=== PATIENT | female | born 1960 | race Caucasian/White ===

== ENCOUNTER 2020-12-15 14:26 | Outpatient (CLI) | payer OTHER, SELFPAY ==
--- NOTE | ~2020-12-15 | CT_ITS ---
EXAMINATION: CT lung screening DATE: 12/15/2020 15:25 INDICATION: Z87.891 - Personal history of nicotine dependence TECHNIQUE: Computed tomography (CT) of the chest was performed without intravenous contrast. Addition al 3D reconstructions utilizing coronal maximum intensity projection (MIP) were performed. Automated exposure control and iterative reconstruction technique were employed. The dose-length product was 75 .28 mGy-cm. COMPARISON: None FINDINGS: Mild emphysema. Diffuse mild central bronchiectatic changes. Mild pleural parenchymal scarring at the bilateral apices. There are few scattered bilateral <4 mm pulmonary nodules. No pulmonary edema, ple ural effusion or pneumothorax. Heart size is normal. Scattered atherosclerotic coronary artery calcif ications. No pericardial effusion. Thoracic aorta is normal in caliber. No pathologically enlarged th oracic lymphadenopathy. No interval change since CT abdomen dated 11/25/2014 in peripherally calcified 1.9 cm and 1.4 cm splenic artery aneurysms. Mild thoracic spondylosis. IMPRESSION: 1. Lung-RADS category 2: Benign appearance or behavior. Continue annual screening with noncontrast lo w-dose chest CT in 12 months. Reviewed, dictated and finalized at location A. IMPRESSION: 1. Lung-RADS category 2: Benign appearance or behavior. Continue annual screeni ng with noncontrast low-dose chest CT in 12 months.
--- NOTE | ~2020-12-15 | MM_ITS ---
EXAMINATION: MM screening [facility] BI w jennifer HISTORY: Screening TECHNIQUE: Craniocaudal and mediolateral oblique 3-D tomosynthesis images were obtained and synthetic 2-D images were generated. CAD analysis was submitted and interpreted. COMPARISON: Comparison to multiple prior studies sequentially, with oldest reviewed study dated 11/08. BREAST PARENCHYMAL COMPOSITION: Breast composed of scattered areas of fibroglandular density. FINDINGS: There is no evidence of suspicious mass, calcification, or architectural distortion to sugg est malignancy in either breast. There has been no suspicious interval change. IMPRESSION: 1. No mammographic evidence of malignancy. 2. Recommend routine screening mammography in one year. BI-RADS Category 1: Negative Reviewed, dictated and finalized at location A.
== END 2020-12-15 14:27 | disposition home or self-care (01) ==
PROVIDERS: PCP Family Medicine; Visit Provider Family Medicine
DX: Z12.2 Encounter for screening for malignant neoplasm of respiratory organs (principal); Z87.891 Personal history of nicotine dependence; Z12.31 Encounter for screening mammogram for malignant neoplasm of breast
CPT/HCPCS: 71271; 77063; 77067

== ENCOUNTER → 2022-03-05 14:33 | Outpatient (CLI) | payer OTHER, SELFPAY ==
--- NOTE | ~2022-03-05 | CT_ITS ---
EXAMINATION: CT lung screening DATE: 03/05/2022 14:51 INDICATION: Lung cancer screening. TECHNIQUE: Computed tomography (CT) of the chest was performed without intravenous contrast. The dose -length product was 66.97 mGy-cm. Automated exposure control and iterative reconstruction technique w ere employed. COMPARISON: CT dated 12/16/2019 FINDINGS: Heart size is normal. No significant pleural or pericardial effusion. No thoracic lymphaden opathy. There is emphysema. No endobronchial lesions. Stable splenic artery aneurysms compared with p rior study. There is apical pleural thickening/scarring. There are a few small scattered pulmonary no dules measuring 3 mm or less, unchanged. Mild thoracic spondylosis. IMPRESSION: 1. Lung-RADS category 2: Benign appearance or behavior. Continue annual screening with noncontrast lo w-dose chest CT in 12 months. Reviewed, dictated and finalized at location B. COACH IMPRESSION: 1. Lung-RADS category 2: Benign appearance or behavior. Continue annual screeni ng with noncontrast low-dose chest CT in 12 months.
--- NOTE | ~2022-03-05 | MM_ITS ---
EXAMINATION: MM screening [facility] BI w jennifer HISTORY: Screening mammogram TECHNIQUE: Craniocaudal and mediolateral oblique 3-D tomosynthesis images were obtained and synthetic 2-D images were generated. CAD analysis was submitted and interpreted. COMPARISON: 12/15/2020 bilateral screening mammogram 02/09/2019 diagnostic left mammogram and limited left breast ultrasound 01/27/2019 bilateral screening mammogram BREAST PARENCHYMAL COMPOSITION: The breasts are heterogeneously dense, which may obscure small masses . FINDINGS: New approximately 12 mm partially circumscribed rounded opacity in the posterior upper oute r left breast. Diagnostic left mammogram and left breast ultrasound examination are recommended. There is chronic fibroglandular asymmetry. Occasional benign calcifications. There is no other eviden ce of suspicious mass, calcification, or architectural distortion to suggest malignancy in either taya ast. There has been no other suspicious interval change. IMPRESSION: 1. New 12 mm partially circumscribed opacity in posterior upper outer left breast 2. Diagnostic left mammogram and left breast ultrasound examination are recommended BI-RADS Category 0: Incomplete: Needs additional imaging evaluation. Reviewed, dictated and finalized at location A. 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 New 12 mm partially circumscribed opacity in posterior upper outer left [address] 2. Diagnostic left mammogram and left breast ultrasound examination are recomme nded BI-RADS Category 0: Incomplete: Needs additional imaging evaluation.
== END ==
PROVIDERS: PCP Family Medicine; Visit Provider Physician Assistant
DX: Z12.2 Encounter for screening for malignant neoplasm of respiratory organs (principal); F17.210 Nicotine dependence, cigarettes, uncomplicated
CPT/HCPCS: 71271; 77063; 77067

== ENCOUNTER 2022-03-30 00:04 | Day surgery (SDC) | payer OTHER, SELFPAY ==
[2022-03-22 11:07] VITALS: BMI 21.7
--- NOTE | 2022-03-29 20:21 | PM.HPGS ---
History of Present Illness History of Present Illness Consent: Risks, benefits, and alternatives have been discussed and questions answered. Patient agrees to proceed with procedure. Chief complaint: neoplasm screening Narrative: Sandra Baugh is a 61 year old female Who was referred for colon cancer screening. Her last colonoscopy was 10 years ago. Review of Systems Review of Systems: All systems reviewed & are unremarkable except as noted in HPI and below PMFSH Past Medical History Medical History ACL tear Encounter for screening mammogram for breast cancer History of benign breast biopsy Ovarian mass Surgical History Surgical History History of appendectomy History of carpal tunnel release Family History Family History Mother Hypertension Family history of elevated blood lipids Social History Social History Smoking packs per day: 0.5 Smoking cigarettes per day: 10.0 Years smoked: 30 Smoking pack-years: 15.00 Smoking status: Current every day smoker Tobacco type: cigarettes Alcohol intake: current Drinks per week: 6 Substance use type: does not use Living arrangements: with family Spiritual care concerns: No Meds Home Medications and Allergies Home Medications Medication Instructions Recorded Confirmed Type loratadine 5 mg-pseudoephedrine ER See Rx Instructions .Route 11/23/21 03/22/22 Rx 120 mg tablet,extended .COMPLEX #60 tabs release,12hr (Loratadine-D) meclizine 12.5 mg tablet 12.5 mg PO BID PRN dizziness #30 11/27/21 03/22/22 Rx tabs triamterene 37.5 1 tablet PO QAM #90 tabs 02/21/22 03/22/22 Rx mg-hydrochlorothiazide 25 mg tablet atorvastatin 10 mg tablet 10 mg PO DAILY 03/22/22 03/22/22 History Allergies Allergy/AdvReac Type Severity Reaction Status Date / Time erythromycin base Allergy Unknown Unknown Verified 03/30/22 08:43 Sulfa (Sulfonamide Allergy Unknown Nausea Verified 03/30/22 08:43 Antibiotics) sulfamethizole Allergy Unknown Unknown Verified 03/30/22 08:43 codeine AdvReac Unknown Nausea Verified 03/30/22 08:43 Exam Const: General: alert Orientation/consciousness: patient oriented x3 Resp: Auscultation: clear to auscultation bilaterally Cardio: Rhythm: regular rhythm GI: GI Palp: Yes Soft to palpation and No Tenderness to palpation present (GI) Neuro: General: patient oriented x3 Assessment and Plan Assessment and plan (1) Colon cancer screening: Code(s): Z12.11 - Encounter for screening for malignant neoplasm of colon Status: Acute Assessment and Plan: Colonoscopy with possible biopsy or polypectomy or cautery or injection of substances.
[2022-03-30 08:44] VITALS: BP 111/80; PULSE 114; RESP 19; TEMP 36.4; O2SAT 98
[2022-03-30] MEDS: LACTATED RINGERS 1,000 ML 150 ML IV CONT (08:52)
--- NOTE | 2022-03-30 09:18 | WPDANESEPPF ---
Anes - Initial Pre Proc Eval Procedure: Operation Date: 03/30/22 09:30 Proposed Procedures p Screening Colonoscopy - Arnold Javed MD Date/Time: 03/30/22 09:18 Surgeon: Arnold Javed MD Pre Op Diagnosis: neoplasm screening Patient Data Age: 61 Gender: F Height: 1.8 m Weight: 69.6 kg Last Vital Signs Temp 97.6 F 03/30/22 08:44 Pulse 114 H 03/30/22 08:44 Resp 19 03/30/22 08:44 BP 111/80 03/30/22 08:44 Pulse Ox 98 03/30/22 08:44 O2 Del Method Room Air 03/30/22 08:44 Allergies Allergy/AdvReac Type Severity Reaction Status Date / Time erythromycin base Allergy Unknown Unknown Verified 03/30/22 08:43 Sulfa (Sulfonamide Allergy Unknown Nausea Verified 03/30/22 08:43 Antibiotics) sulfamethizole Allergy Unknown Unknown Verified 03/30/22 08:43 codeine AdvReac Unknown Nausea Verified 03/30/22 08:43 Home Medications Medication Instructions Recorded Confirmed Type loratadine 5 mg-pseudoephedrine ER See Rx Instructions .Route 11/23/21 03/22/22 Rx 120 mg tablet,extended .COMPLEX #60 tabs release,12hr (Loratadine-D) meclizine 12.5 mg tablet 12.5 mg PO BID PRN dizziness #30 11/27/21 03/22/22 Rx tabs triamterene 37.5 1 tablet PO QAM #90 tabs 02/21/22 03/22/22 Rx mg-hydrochlorothiazide 25 mg tablet atorvastatin 10 mg tablet 10 mg PO DAILY 03/22/22 03/22/22 History Patient hx anesthesia problems: none Family hx anesthesia problems: none Results Review: All pre-operative results and documents have been reviewed as part of the pre-operative evaluation. [facility] Past Medical History Medical History ACL tear Encounter for screening mammogram for breast cancer History of benign breast biopsy Ovarian mass Surgical History Surgical History History of appendectomy History of carpal tunnel release Family History Family History Mother Hypertension Family history of elevated blood lipids Social History Social History Smoking packs per day: 0.5 Smoking cigarettes per day: 10.0 Years smoked: 30 Smoking pack-years: 15.00 Smoking status: Current every day smoker Tobacco type: cigarettes Alcohol intake: current Drinks per week: 6 Substance use type: does not use Living arrangements: with family Spiritual care concerns: No Anes - Eval Final PreProcedure Day of Procedure 03/30/22 09:18 Patient weight: normal Heart: regular rate and rhythm Lungs: clear to auscultation Airway: Mallampati scale class II Neurological: alert and oriented Last oral intake: >/= 8 hours ASA classification: II Emergent: no Anesthetic plan: proceed Anesthesia type and monitoring: general GIVS and standard monitoring Results Review: All pre-operative results and documents have been reviewed as part of the pre-operative evaluation. Informed Consent: The patient's anesthetic plan and its attendant risks and benefits were discussed with the patient/family/POA. Questions were solicited and answers provided to the satisfaction of the patient/family/POA.
[2022-03-30 09:47] VITALS: BP 122/77; PULSE 90; RESP 20; O2SAT 100
[2022-03-30 09:57] VITALS: BP 122/80; PULSE 86; RESP 20; O2SAT 99
[2022-03-30 10:07] VITALS: BP 114/69; PULSE 88; RESP 20; O2SAT 100
== END 2022-03-30 10:17 | disposition home or self-care (01) ==
PROVIDERS: PCP Family Medicine; Visit Provider Internal Medicine Gastroenterology
PROC: 0DJD8ZZ Inspection of Lower Intestinal Tract, Via Natural or Artificial Opening Endoscopic (ICD-10-PCS; CPT 45378; principal; 2022-03-30 09:30)
DX: Z12.11 Encounter for screening for malignant neoplasm of colon (principal); K57.30 Diverticulosis of large intestine without perforation or abscess without bleeding; F17.210 Nicotine dependence, cigarettes, uncomplicated
CPT/HCPCS: 45378; J2704; J7120

== ENCOUNTER 2022-05-11 07:42 | Outpatient (CLI) | payer OTHER, SELFPAY ==
--- NOTE | ~2022-05-11 | MMUS_ITS ---
EXAMINATION: MM diagnostic [facility] LT w jennifer, US breast LT limited HISTORY: Follow-up left breast asymmetries TECHNIQUE: Additional 3-D tomosynthesis images of the left breast were performed and synthetic 2-D im ages were generated. CAD analysis was submitted and interpreted. High resolution Limited left breast ultrasound was performed. COMPARISON: Comparison to multiple prior studies sequentially, with oldest reviewed study dated 12/02. BREAST PARENCHYMAL COMPOSITION: The breasts are heterogeneously dense, which may obscure small masses FINDINGS: MAMMOGRAPHIC FINDINGS: There is a stable mass in the upper outer quadrant of the left breast which is partially obscured by fibroglandular tissue. There are no suspicious calcifications or architectural distortion. ULTRASOUND: Limited left breast ultrasound: At 1:00, 4 cm from the nipple, there is a stable mixed solid and cyst ic oval hypoechoic mass with parallel orientation, posterior acoustic enhancement and no internal vas cularity. This mass measures 1.4 x 1.4 x 0.8 cm and is unchanged dating back to 2007 allowing for dif ferences of technique. At 2:00, 4 cm from the nipple there is a hypoechoic mass measuring 5 x 4 x 3 m m with slightly irregular margins and marginal vascularity. No significant posterior features. IMPRESSION: 1. Slightly irregular shaped 5 mm hypoechoic mass of the left breast at 2:00, 4 cm from the nipple. 2. Ultrasound-guided left breast biopsy recommended. BI-RADS category 4, suspicious findings. Reviewed, dictated and finalized at location A. 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 Slightly irregular shaped 5 mm hypoechoic mass of the left breast at 2:00, 4 cm from the nipple. 2. Ultrasound-guided left breast biopsy recommended. BI-RADS category 4, suspicious findings.
== END 2022-05-11 07:43 ==
LOC: MICIMG 07:43
PROVIDERS: PCP Family Medicine; Visit Provider Physician Assistant
DX: R92.8 Other abnormal and inconclusive findings on diagnostic imaging of breast (principal)
CPT/HCPCS: 76642; 77061; 77065; G0279

== ENCOUNTER 2022-05-18 09:03 | Outpatient (CLI) | payer OTHER, SELFPAY ==
--- NOTE | ~2022-05-18 | US_ITS ---
US breast LT limited INDICATION: Focal abnormality seen on previous ultrasound in the left breast. Biopsy requested. TECHNIQUE: Dedicated Limited left breast ultrasound COMPARISON: 05/11/2022 FINDINGS: The left breast is composed of normal heterogeneous echotexture without focal solid or cyst ic mass. The area of previously identified abnormality at 2:00, 4 cm from the nipple was scanned by prakash persaud technologist and Dr. Barahona. The previously identified 4 mm hypoechoic lesion could not be replicate d on the current examination with multiple attempts. This likely represents focal fibroglandular cont ent. No abnormalities at this location were identified for biopsy purposes. Findings were discussed w ith the patient at the time of the examination. It was explained to the patient that no abnormality w as identified for biopsy. The patient expressed her concern that the discrepancy between examinations and we discussed the possibility of the teaching additional opinion an outside institution. She was encouraged to do so following discussion with her primary care physician. IMPRESSION: 1: Left breast abnormality at 2:00, 4 cm from the nipple shows no reproducible abnormality which was discussed on prior examination. Biopsy canceled. BI-RADS CATEGORY 3-PROBABLY BENIGN FINDING RECOMMENDATION: Six-month follow-up diagnostic left mammogram and ultrasound recommended. Reviewed, dictated and finalized at location A. E HOST IMPRESSION: 1: Left breast abnormality at 2:00, 4 cm from the nipple shows no reproducible abnormality which was discussed on prior examination. Biopsy canceled. BI-RADS CATEGORY 3-PROBABLY BENIGN FINDING RECOMMENDATION: Six-month follow-up diagnostic left mammogram and ultrasound re commended.
== END 2022-05-18 09:04 | disposition home or self-care (01) ==
PROVIDERS: PCP Family Medicine; Visit Provider Family Medicine
DX: N63.20 Unspecified lump in the left breast, unspecified quadrant (principal); R92.8 Other abnormal and inconclusive findings on diagnostic imaging of breast
CPT/HCPCS: 76642

== ENCOUNTER 2022-06-04 10:00 | Outpatient (CLI) | payer OTHER, SELFPAY ==
--- NOTE | ~2022-06-04 | XR_ITS ---
Supine and upright views of the abdomen Clinical history: Diarrhea Findings: Bowel gas pattern is nonspecific. No evidence for obstruction or free air. No abnormal mass lesion or calcification is seen. Osseous structures are intact. Impression: No significant abnormality is seen. Reviewed, dictated and finalized at [facility]. 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
== END 2022-06-04 10:01 ==
PROVIDERS: PCP Family Medicine; Visit Provider Family Medicine
DX: R19.7 Diarrhea, unspecified (principal); R10.9 Unspecified abdominal pain
CPT/HCPCS: 74018

== ENCOUNTER 2022-08-27 18:43 | Emergency (ER) | payer OTHER, SELFPAY ==
[2022-08-27 18:55] VITALS: BP 130/88; PULSE 109; RESP 16; TEMP 36.6; O2SAT 100
--- NOTE | 2022-08-27 19:12 | ED.WOUNDLAC ---
HPI - Wound/Laceration General Chief Complaint: Skin/Abscess/Foreign Body Stated Complaint: Injured left leg Time Seen by Provider: 08/27/22 19:02 Source: patient, RN notes reviewed and old records reviewed Mode of arrival: ambulatory Limitations: no limitations History of Present Illness HPI narrative: 61 year old female who presents to [facility] care with complaints of hitting her left lower leg on the oven door this evening at 1700.. 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 When she hit area area busted open with bruising to tissue at lower aspect of wound with red tissue at upper aspect of wound. Patient reports that she had a moderate amount of bleeding from tissue when it occurred. Patient has large band-aide over wound area on arrival with bleeding controlled at this time.Patient reports that she had previous radiation treatment to area and also had seen wound care clinic at [facility].Patient has appointment with her kiss machine operator tomorrow who initially performed the removal of skin cancer. Onset (ago): hour(s) (1700 this evening) Location: other (left lower anterior leg) Place: home Patient tetanus UTD: Yes Treatments prior to arrival: bandage Related Data Allergies Allergy/AdvReac Type Severity Reaction Status Date / Time erythromycin base Allergy Unknown Unknown Verified 07/30/22 15:07 Sulfa (Sulfonamide Allergy Unknown Nausea Verified 07/30/22 15:07 Antibiotics) sulfamethizole Allergy Unknown Unknown Verified 07/30/22 15:07 codeine AdvReac Unknown Nausea Verified 07/30/22 15:07 Review of Systems Review of Systems: CONSTITUTIONAL: Denies fever, chills, or sweats. CARDIOVASCULAR: Denies chest pain, palpitations, or edema. RESPIRATORY: Denies cough or dyspnea. GASTROINTESTINAL: Denies abdominal pain, nausea, vomiting SKIN: Reports redness and swelling of open wound to left lower leg where she hit it on oven door this evening had previous removal of skin cancer from area. MUSCULOSKELETAL: Denies myalgia. NEUROLOGIC: Denies headache, numbness All systems reviewed & are unremarkable except as noted in HPI and below [facility] Past Medical History Medical History (Updated 08/28/22 @ 09:24 by Debra Machado NP) ACL tear Encounter for screening mammogram for breast cancer Fecal incontinence Fecal urgency History of benign breast biopsy Ovarian mass Sigmoid diverticulum Surgical History Surgical History (Updated 08/28/22 @ 09:17 by Debra Machado NP) History of appendectomy History of carpal tunnel release Status post surgical removal of malignant neoplasm of skin Family History Family History Mother Hypertension Family history of elevated blood lipids Social History Social History Smoking packs per day: 0.5 Smoking cigarettes per day: 10.0 Years smoked: 30 Smoking pack-years: 15.00 Smoking status: Current every day smoker Tobacco type: cigarettes Alcohol intake: current Drinks per week: 6 Substance use type: does not use Lack of Transportation: No Lack of Food: Never True Current Housing: I Have Housing Concerned About Future Housing: No Difficulty Paying Gas/Electric Bills: No Difficulty Paying for Meds: No Currently Unemployed: No Education: High School Diploma/GED Difficulty w/ Childcare or Family Care: No Living arrangements: with family Spiritual care concerns: No Comments At time of signature, agree with nursing past medical, surgical, social and family history. There is no relevant family history pertinent to the presenting complaint Exam Narrative: GENERAL: Well-appearing, well-nourished, and in no acute distress. HEAD: Normocephalic, atraumatic. EYES: PERRLA and EOMI. ENT: Nares clear, no rhinorrhea or epistaxis. Mucous membranes moist.TM's nor
== END 2022-08-27 19:31 | disposition home or self-care (01) ==
PROVIDERS: Emergency Provider Registered Nurse; PCP Family Medicine
DX: S81.802A Unspecified open wound, left lower leg, initial encounter (principal); W22.8XXA Striking against or struck by other objects, initial encounter; Z85.828 Personal history of other malignant neoplasm of skin; F17.210 Nicotine dependence, cigarettes, uncomplicated
CPT/HCPCS: 99213; G0463

== ENCOUNTER 2023-01-14 07:59 | Outpatient (CLI) | payer OTHER, SELFPAY ==
--- NOTE | ~2023-01-14 | MMUS_ITS ---
EXAMINATION: MM diagnostic fred LT w jennifer, US breast LT limited HISTORY: Follow-up for probably benign left breast mass TECHNIQUE: Craniocaudal, mediolateral, and mediolateral oblique 3-D tomosynthesis images of the left breast were performed and synthetic 2-D images were generated. CAD analysis was submitted and interpr eted. High resolution limited left breast ultrasound was performed. COMPARISON: 05/18/2022, 05/11/2022, 03/05/2022, 12/15/2020 BREAST PARENCHYMAL COMPOSITION: The breasts are heterogeneously dense, which may obscure small masses . FINDINGS: MAMMOGRAPHIC FINDINGS: A stable mass in the upper outer quadrant of the breast is considered benign given the lack of interv al change. No mammographic correlate is identified for the sonographic finding in question. ULTRASOUND: There is a questionable 4 mm hypoechoic mass at the 2:00 location, 4 cm from the nipple. On some imag es, this appears to blend with background parenchymal. Overall size of the area questioned is stable since the comparison ultrasound. There is a stable 1.4 x 0.7 cm oval, circumscribed, parallel, comple x cystic and solid mass at the 1:00 location, 4 cm from the nipple. IMPRESSION: 1. Probably benign sonographically detected finding of the left breast. 2. Recommend 6 month follow-up left diagnostic mammogram and ultrasound. BI-RADS category 3, probably benign findings. Reviewed, dictated and finalized at location A. IMPRESSION: 1. Probably benign sonographically detected finding of the left breast. 2. Recommend 6 month follow-up left diagnostic mammogram and ultrasound. BI-RADS category 3, probably benign findings.
== END 2023-01-14 08:00 ==
LOC: MICIMG 08:00
PROVIDERS: PCP Family Medicine; Visit Provider Family Medicine
DX: Z12.31 Encounter for screening mammogram for malignant neoplasm of breast (principal); R92.8 Other abnormal and inconclusive findings on diagnostic imaging of breast
CPT/HCPCS: 76642; 77061; 77065; G0279

== ENCOUNTER 2023-10-16 08:03 | Outpatient (CLI) | payer OTHER, SELFPAY ==
--- NOTE | ~2023-10-16 | MMUS_ITS ---
EXAMINATION: MM diagnostic fred BI w jennifer, US breast LT limited HISTORY: Six-month follow-up of probably benign left breast lesion TECHNIQUE: 3-D tomosynthesis images of the bilateral breasts were performed and synthetic 2-D images were generated. CAD analysis was submitted and interpreted. High resolution limited left breast ultra sound was performed. COMPARISON: 01/14/2023, 05/11/2022, 03/05/2022 BREAST PARENCHYMAL COMPOSITION:Dense: The breasts are heterogeneously dense, which may obscure small masses. FINDINGS: MAMMOGRAPHIC FINDINGS: Parenchymal pattern of both breasts is unchanged. Stable area of asymmetric density at the upper, out er left breast. No suspicious microcalcifications seen. No suspicious mass lesion or distortion seen. ULTRASOUND: At the 1:00 position left breast, 4 cm from nipple, there is a stable 1.4 x 1.3 x 0.7 cm circumscribe d mass which is wider than tall, probably solid and hypoechoic, with some small cystic components. No posterior shadowing. No other sonographic lesions seen in the region scanned. IMPRESSION: No evidence for malignancy. Stable mammographic examination. Stable benign-appearing 1.4 cm mass at the 1:00 position left breast, as detailed above. BI-RADS Category 2: Benign finding(s). Reviewed, dictated and finalized at location M. IMPRESSION: No evidence for malignancy. Stable mammographic examination. Stable benign-sheri earing 1.4 cm mass at the 1:00 position left breast, as detailed above. BI-RADS Category 2: Benign finding(s).
== END 2023-10-16 08:04 ==
PROVIDERS: PCP Nurse Practitioner; Visit Provider Family Medicine
DX: R92.8 Other abnormal and inconclusive findings on diagnostic imaging of breast (principal)
CPT/HCPCS: 76642; 77062; 77066; G0279

== ENCOUNTER 2023-12-02 13:25 | Outpatient (CLI) | payer OTHER, SELFPAY ==
--- NOTE | ~2023-12-02 | MR_ITS ---
MR breast BI wo/w con 12/02/2023 16:27 CDT INDICATION: Follow-up left breast mass TECHNIQUE: MRI of the breasts perform using standard protocol pre-and post IV contrast with the follo wing sequences: Axial T2 STIR, axial T1, axial vibrant T1 with fat suppression precontrast and multip hasic postcontrast. 15 cc MultiHance administered intravenously. COMPARISON: Comparison to multiple prior studies sequentially, with oldest reviewed study dated 05/2020. FINDINGS: There are no abnormalities on the precontrast sequences. There is minimal background parenc hymal enhancement. No enhancing lesions following contrast administration. No areas of enhancement meeting threshold criteria on CAD analysis. No evidence of signal abnormalities in the axillary or i nternal mammary node distributions. LEFT BREAST: Precontrast sequences demonstrate a T1 hypointense mass in the upper inner quadrant of t he left breast, middle third at approximately 12:00. This mass has a rounded configuration with inter nal dark septations, heterogeneous rapid persistent enhancement postcontrast administration measuring 8 x 6 x 5 mm. There is minimal background parenchymal enhancement. IMPRESSION: 1: Right breast: Negative. No evidence of malignancy. BI-RADS category 1. Recommend annual mammo graphy follow-up. 2: Left breast: Complex heterogeneously enhancing 8 mm left breast mass upper inner quadrant at appr oximately 12:00, middle third. This corresponds to the mass identified on prior ultrasound examinatio ns. Although there is been no significant change to this mass compared with prior ultrasounds dating back to 05/11/2022, low-grade malignancy is not excluded. Ultrasound-guided left breast biopsy recomm ended. BI-RADS CATEGORY 4-SUSPICIOUS ABNORMALITY Reviewed, dictated and finalized at location B. IMPRESSION: 1: Right breast: Negative. No evidence of malignancy. BI-RADS category 1. Recommend annual mammography follow-up. 2: Left breast: Complex heterogeneously enhancing 8 mm left breast mass upper inner quadrant at approximately 12:00, middle third. This corresponds to the ma ss identified on prior ultrasound examinations. Although there is been no sign ificant change to this mass compared with prior ultrasounds dating back to 05/11, low-grade malignancy is not excluded. Ultrasound-guided left breast biop sy recommended. BI-RADS CATEGORY 4-SUSPICIOUS ABNORMALITY
== END 2023-12-02 13:26 | disposition home or self-care (01) ==
PROVIDERS: PCP Family Medicine; Visit Provider Surgery
DX: N63.21 Unspecified lump in the left breast, upper outer quadrant (principal); R92.8 Other abnormal and inconclusive findings on diagnostic imaging of breast; R92.333 Mammographic heterogeneous density, bilateral breasts
CPT/HCPCS: 77049; A9577; C8908

== ENCOUNTER 2024-01-22 08:49 | Outpatient (CLI) | payer OTHER, SELFPAY ==
--- NOTE | ~2024-01-22 | MMUS_ITS ---
MM post biopsy invasive LT, US breast biopsy LT w image EXAMINATION: US GUIDED NEEDLE BIOPSY WITH VACUUM ASSISTANCE DATE: 01/22/2024 11:29 CDT INDICATION: Left breast mass seen on recent examination. Ultrasound-guided core biopsy is requested to evaluate for malignancy. BREAST PARENCHYMAL COMPOSITION: Dense: The breasts are heterogeneously dense, which may obscure small masses TECHNIQUE AND FINDINGS: The risks and potential benefits of the procedure were discussed with the patient, and written inform ed consent was obtained. After sterile preparation of the left breast, 1% lidocaine was utilized for local anesthesia. 1% lidocaine with epinephrine was used for deep anesthesia. A 10G vacuum-assisted biopsy gun needle was advanced through to the outer edge of the region of inter est from a superior approach utilizing sonographic guidance. A total of 4 tissue core samples were o btained through the lesion. An Inrad tissue marker clip was then placed at the biopsy site. Hemostas is was achieved. The patient tolerated procedure well and there was no evidence of immediate complication. The patien t was given verbal instructions partly is from the department. Left breast mammograms to document ti ssue marker clip placement. The tissue samples were submitted to surgical pathology for histologic an alysis. IMPRESSION: 1. Successful ultrasound-guided vacuum-assisted biopsy of left breast mass with post procedure mammo gram for marker placement. Please refer to pathology report for histologic analysis. Reviewed, dictated and finalized at location B. IMPRESSION: 1. Successful ultrasound-guided vacuum-assisted biopsy of left breast mass wit h post procedure mammogram for marker placement. Please refer to pathology repo rt for histologic analysis.
== END 2024-01-22 08:50 | disposition home or self-care (01) ==
PROVIDERS: PCP Family Medicine; Visit Provider Surgery
DX: N63.22 Unspecified lump in the left breast, upper inner quadrant (principal); N62 Hypertrophy of breast; R92.8 Other abnormal and inconclusive findings on diagnostic imaging of breast
CPT/HCPCS: 19083; 88305; A4648